=== PATIENT | male | born 1980 | race Two or more races ===

== ENCOUNTER → 2022-07-26 11:15 | Outpatient (BNVA) | payer OTHER, SELFPAY | PROVIDERS: Visit Provider Physician Assistant Medical | DX: M25.562 Pain in left knee (principal) | CPT/HCPCS: 73564; 99215 ==

== ENCOUNTER → 2022-08-04 09:46 | Outpatient (BNVA) | payer OTHER, SELFPAY | PROVIDERS: PCP Internal Medicine; Visit Provider Physician Assistant Medical | DX: M25.562 Pain in left knee (principal) | CPT/HCPCS: 99213 ==

== ENCOUNTER 2022-08-04 13:04 | Outpatient (REF) | payer OTHER, SELFPAY ==
--- NOTE | ~2022-08-04 | XR_ITS ---
EXAMINATION: PRE-MRI ORBITS AERATED CLINICAL INFORMATION: History of metallic object in eyes. COMPARISON: None TECHNIQUE: 3 views of the orbits FINDINGS: There is no radiopaque foreign body seen in the orbits. The paranasal sinuses are well-aerated and clear. The soft tissues are normal. XR/XR pre mri screening IMPRESSION: No radiopaque metallic foreign body seen in the orbits.
--- NOTE | ~2022-08-04 | MR_ITS ---
EXAMINATION: MR KNEE WITHOUT CONTRAST, LEFT CLINICAL INFORMATION: Fall, pain. COMPARISON: None TECHNIQUE: MRI of the knee without contrast was performed using routine sequences on a high-field scanner. FINDINGS: MENISCI: Medial Meniscus: Intact Lateral Meniscus: Intact LIGAMENTS: Cruciate: Mild T2 signal in the mid/distal ACL. The ligament otherwise demonstrates normal orientation. These findings may reflect physiological variation versus sprain injury. PCL is intact. Collateral: Intact EXTENSOR MECHANISM: Intact ARTICULAR CARTILAGE/BONE: No significant cartilage loss in 3 compartments. Anatomic alignment. No evidence of acute fracture. No suspicious marrow signal changes. JOINT FLUID AND BURSAE: Small joint fluid. No significant Forrester's cyst. MR/MR knee LT wo con IMPRESSION: 1. Menisci appear intact without evidence of discrete tear. 2. Signal changes in the mid/distal ACL may reflect physiological variation versus sprain injury. 3. No acute osseous abnormality.
== END 2022-08-04 13:05 | disposition home or self-care (01) ==
LOC: HO.MRI 13:04
PROVIDERS: PCP Internal Medicine; Visit Provider Internal Medicine
DX: M25.562 Pain in left knee (principal)
CPT/HCPCS: 73721

== ENCOUNTER → 2022-08-11 10:43 | Outpatient (BNVA) | payer OTHER, SELFPAY | PROVIDERS: PCP Internal Medicine; Visit Provider Physician Assistant Medical | DX: S43.52XD Sprain of left acromioclavicular joint, subsequent encounter (principal); X58.XXXD Exposure to other specified factors, subsequent encounter | CPT/HCPCS: 99213 ==